=== PATIENT | male | born 1990 | race Caucasian/White ===

== ENCOUNTER 2023-03-15 18:58 | Emergency (ER) | payer OTHER, SELFPAY | END 2023-03-15 20:54 | disposition home or self-care (01) | LOC: ERS 18:58 | DX: S81.812A Laceration without foreign body, left lower leg, initial encounter (principal); I10 Essential (primary) hypertension; F17.290 Nicotine dependence, other tobacco product, uncomplicated; W27.8XXA Contact with other nonpowered hand tool, initial encounter; Y92.219 Unspecified school as the place of occurrence of the external cause ==

== ENCOUNTER 2024-02-14 15:00 | Emergency (ER) | payer BC ==
[2024-02-14] MEDS ORDERED: Ketorolac Tromethamine 30 MG (1 mL) VIAL ONE (15:07)
== END 2024-02-14 16:04 | disposition home or self-care (01) ==
LOC: ERS 15:00
DX: M25.562 Pain in left knee (principal); F17.200 Nicotine dependence, unspecified, uncomplicated; W19.XXXA Unspecified fall, initial encounter; Z99.0 Dependence on aspirator
CPT/HCPCS: 96372; 99283; J1885

== ENCOUNTER 2024-04-21 10:28 | Emergency (ER) | payer BC ==
[2024-04-21] MEDS ORDERED: Ibuprofen 200 MG TAB ONE (11:48)
== END 2024-04-21 13:03 | disposition home or self-care (01) ==
LOC: ERS 10:28
DX: J11.1 Influenza due to unidentified influenza virus with other respiratory manifestations (principal); F17.210 Nicotine dependence, cigarettes, uncomplicated
CPT/HCPCS: 71045; 87428